=== PATIENT | female | born 1990 | race Caucasian/White ===

== ENCOUNTER 2022-05-25 08:31 | Outpatient (CLI) | payer BC, SELFPAY ==
--- NOTE | 2022-05-25 08:45 | CRLHL7_ITS ---
For Patients: As a result of the Century Cures Act, medical imaging exams and procedure reports are released immediately into your electronic medical record. You may view this report before your referring provider. If you have questions, please contact your health care provider. INDICATION: First trimester scan, establish dates. COMPARISON: None. TECHNIQUE: Real-time ornelas-scale imaging of the pelvis was performed. FINDINGS: Sonographic imaging demonstrates a single living intrauterine gestation. The embryo demonstrates a regular cardiac rate measuring 179 beats per minute. The embryo`s crown-rump length measurement of 1.8 cm corresponds to a gestational age of 8 weeks 2 days with a sonographic due date of 01/02/2023. There is a normal-appearing yolk sac. There are no gross abnormalities noted within the embryo at this early state of development. The gestational sac has a normal appearance. There is no evidence of a perigestational hemorrhage. The amount of fluid within the sac appears appropriate for gestational age. The cervix is closed. An intramural fibroid is present within the right uterine fundus measuring 1.7 x 1.4 x 1.7 cm. A smaller fibroid is present within the right lower uterine segment measuring 1.7 x 1.1 x 1.6 cm. The ovaries are of normal size. There are no suspicious fluid collections noted in the cul-de-sac. IMPRESSION: Single living intrauterine with sonographic gestational age 8 weeks 2 days and sonographic due date 01/02/2023. Two intramural fibroids measuring up to 1.7 cm. Dictated by Roberth Joya MD @ 05/25/2022 11:12:31 AM (Electronically Signed)
== END 2022-05-25 08:32 | disposition home or self-care (01) ==
LOC: US 08:32
PROVIDERS: Visit Provider Advanced Practice Midwife
DX: Z34.91 Encounter for supervision of normal pregnancy, unspecified, first trimester (principal); Z3A.09 9 weeks gestation of pregnancy
CPT/HCPCS: 76817; 86703; 86803; 86850; 86900; 86901; 87086; 87340

== ENCOUNTER 2022-05-25 10:00 | Outpatient (CLI) | payer BC, SELFPAY ==
[2022-05-25 13:44] LABS: Hepatitis B Surface Antigen* Negative (Negative)
[2022-05-25 13:50] LABS: HIV 1/2/P24 Combo Screen* Negative (Negative)
[2022-05-25 14:01] LABS: Hepatitis C Virus Antibody* Negative (Negative)
[2022-05-26 15:34] LABS: Rapid Plasma Reagin (RPR) Non Reactive (Non Reactive)
[2022-05-27 00:49] LABS: Varicella-Zoster Virus Ab, IgG 195.4 IV
== END 2022-05-25 10:01 | disposition home or self-care (01) ==
PROVIDERS: Visit Provider Advanced Practice Midwife
DX: Z34.90 Encounter for supervision of normal pregnancy, unspecified, unspecified trimester (principal)
CPT/HCPCS: 86592; 86703; 86762; 86787; 86803; 86850; 86900; 86901; 87086; 87340; 87491; 87591

== ENCOUNTER 2022-06-24 14:22 | Outpatient (CLI) | payer BC, SELFPAY ==
[2022-06-24 17:58] LABS: Chlamydia DNA Amplified* NOT DETECTED (No Detected); GC DNA Amplified* NOT DETECTED (No Detected)
== END 2022-06-24 14:23 | disposition home or self-care (01) ==
LOC: NFLDREF 06-25 11:36
PROVIDERS: Visit Provider Advanced Practice Midwife
DX: Z34.91 Encounter for supervision of normal pregnancy, unspecified, first trimester (principal); Z3A.12 12 weeks gestation of pregnancy
CPT/HCPCS: 87491; 87591

== ENCOUNTER 2022-08-18 08:09 | Outpatient (CLI) | payer BC, SELFPAY ==
--- NOTE | 2022-08-18 08:15 | CRLHL7_ITS ---
For Patients: As a result of the Century Cures Act, medical imaging exams and procedure reports are released immediately into your electronic medical record. You may view this report before your referring provider. If you have questions, please contact your health care provider. INDICATION: Evaluate anatomy. COMPARISON: 05/25/2022 TECHNIQUE: Real time ornelas scale imaging of the fetus was performed as well as color Doppler analysis of the umbilical vessels. FINDINGS: Sonographic imaging demonstrates a single living intrauterine gestation. Fetus demonstrates a regular cardiac rate of 155 beats per minute. Fetus has a breech position. The placenta lies posteriorly without evidence of placenta previa. The edge of the placenta is located 2.4 cm from the internal cervical os. Amniotic fluid volume appears normal. Single deepest vertical pocket: 3.3 cm. The cervix is closed and measures 3.5 cm in length. The composite ultrasound gestational age is calculated at 19 weeks 0 days with an estimated sonographic due date of 01/12/2023. The estimated weight is 294 grams which lies at the 14th %. The following biometric measurements were obtained: Biparietal diameter: 3.9 cm/17 weeks 6 days less than 3rd% Head circumference: 16.0 cm/18 weeks 6 days 3rd% Abdominal circumference: 13.6 cm/19 weeks 1 day 14th% Femur length: 3.3 cm/20 weeks 1 day 43rd% The HC/AC ratio measures: 1.17 range (1.09-1.26) On anatomic survey, there is a normal appearance of the cerebral ventricles, cavum septi pellucidi, cisterna magna and cerebellum. The nose, lips, and facial profile are not well visualized due to position. The cervical, thoracic and lumbar spine are well visualized and appear normal. There is a normal four-chamber heart view and the left and right ventricular outflow tracts are incompletely visualized due to position. The diaphragm and stomach appear normal. The kidneys and bladder also appear normal. There is a normal three-vessel cord and cord insertion site. The four extremities appear normal. IMPRESSION: Sonographic gestational age 19 weeks 0 days and sonographic due date 01/12/2023. Sonographic age 8 days behind the clinical age. Estimated weight 14th percentile. Abdominal circumference 14th percentile. Head circumference less than 3rd percentile. Due to position, there is incomplete visualization of the profile, nose, lips and heart. Remainder of the survey normal. Short-term follow-up recommended. Incidental placental haney noted measuring 2.6 x 1.4 x 2.4 cm. Anterior fibroid measuring 1.8 cm. Dictated by Roberth Joya MD @ 08/18/2022 10:31:33 AM (Electronically Signed)
== END 2022-08-18 08:10 | disposition home or self-care (01) ==
LOC: US 08:10
PROVIDERS: Visit Provider Advanced Practice Midwife
DX: Z34.92 Encounter for supervision of normal pregnancy, unspecified, second trimester (principal); O34.12 Maternal care for benign tumor of corpus uteri, second trimester; Z3A.19 19 weeks gestation of pregnancy
CPT/HCPCS: 76805

== ENCOUNTER 2022-10-14 13:45 | Outpatient (CLI) | payer BC, SELFPAY | END 2022-10-14 13:46 | disposition home or self-care (01) | PROVIDERS: Visit Provider Advanced Practice Midwife | DX: O16.3 Unspecified maternal hypertension, third trimester (principal); Z34.93 Encounter for supervision of normal pregnancy, unspecified, third trimester; Z3A.28 28 weeks gestation of pregnancy | CPT/HCPCS: 82565; 82570; 84156; 84450; 84460; 84520; 86592 ==

== ENCOUNTER 2022-10-23 08:04 | Outpatient (CLI) | payer BC, SELFPAY | END 2022-10-23 08:05 | disposition home or self-care (01) | LOC: NFLDREF 10-24 19:57 | PROVIDERS: Visit Provider Advanced Practice Midwife | DX: O24.419 Gestational diabetes mellitus in pregnancy, unspecified control (principal) | CPT/HCPCS: 82951; 82952 ==

== ENCOUNTER 2022-12-10 11:21 | Outpatient (CLI) | payer BC, SELFPAY ==
[2022-12-10] VITALS (14 sets, daily range): BP systolic 123–136; BP diastolic 68–93; PULSE 82–106; RESP 16; TEMP 36.9
[2022-12-10 12:14] LABS: Total Protein Urine 10 mg/dL
[2022-12-10 12:15] LABS: Creatinine Urine 93.2 mg/dL
[2022-12-10 12:45] LABS: Hematocrit 41.6 % (33.0-51.0); Mean Corpuscular HGB Conc 34 gm/dL (32-36); Mean Corpuscular Hemoglobin 30 pg (26-34); Mean Corpuscular Volume 88 fL (80-100); Platelet Count* 305 K/uL (140-440); Red Blood Count 4.72 m/uL (4.00-5.20); White Blood Count* 10.03 K/uL (4.50-11.00)
[2022-12-10 12:47] LABS: Slide Review Reflex No
[2022-12-10 12:59] LABS: Appearance Urine Clear (Clear); Bilirubin Urine Negative (Negative); Blood Urine Negative (Negative); Color Urine Yellow (Yellow); Glucose Urine Negative (Negative); Ketones Urine Negative (Negative); Leukocyte Esterase Urine Negative (Negative); Nitrite Urine Negative (Negative); Protein Urine Negative (Negative); Specific Gravity Urine 1.015 (1.000-1.030); Urobilinogen Urine 0.2 (0.2-1.0)
[2022-12-10 13:09] LABS: Aspartate Amino Transferase* 19 U/L (12-35); Creatinine* 0.6 mg/dL (0.5-1.5); Estimated Glomerular Filt Rate 121 ml/min
[2022-12-10 13:10] LABS: Alanine Aminotransferase* 13 U/L (4-35); Blood Urea Nitrogen* 6 mg/dL (5-24)
[2022-12-10 13:32] LABS: Clue Cells No Clue Cells Seen (None Seen); Trichomonas No Trichomonas Seen (None Seen); Yeast No Yeast Seen (None Seen)
[2022-12-10] MEDS: BETAMETHASONE SOD PHOS/ACETATE 6 MG/ML ML 12 MG IM (13:42)
--- NOTE | 2022-12-10 15:19 | PC.OBNST ---
NST Note NST Note Start: 12/10/22 11:30 Freq: ONCE Status: Active Protocol: Document 12/10/22 15:15 MMB (Rec: 12/10/22 15:17 MMB [id number]) NST Note 1 Para (# of births) 0 EDC 01/04/23 Gestational Age In Weeks & Days 36 Weeks & 3 Days High Risk Factors High Blood Pressure - Gestational,Diabetes - Gestational Diet Controlled Patient Presented with Complaint(s) of Contractions/cramping,Other Other Complaints Continued observation from clinic for high blood pressures. Reactive Yes Appropriate for Gestational Age Yes RN Tanvi Ramos RN Date 12/10/22 Reactive Yes Appropriate for Gestational Age Yes RN Homero Hidalgo RN Date 12/10/22 OB NST charge Yes Complete NST Note via Write Note Yes The provider's electronic signature indicates the NST is reactive/appropriate for gestational age. *Note to provider: If an addendum is required, open the patient's chart and click on the note under the Nurse/Allied Health tab.
[2022-12-11 11:14] LABS: Strep B DNA Probe POSITIVE (Negative)
[2022-12-11 11:15] LABS: Strep B Pen/Amox Allergy No
== END 2022-12-10 14:50 | disposition home or self-care (01) ==
LOC: OB OUT 11:24 → OB 11:27
PROVIDERS: Visit Provider Advanced Practice Midwife
DX: Z34.93 Encounter for supervision of normal pregnancy, unspecified, third trimester (principal); Z3A.36 36 weeks gestation of pregnancy
CPT/HCPCS: 36415; 59025; 81003; 82565; 82570; 84156; 84450; 84460; 84520; 85027; 87081; 87210; 87653; 99213; J0702

== ENCOUNTER 2022-12-13 23:46 | Inpatient (IN) | payer BC, SELFPAY ==
[2022-12-13 23:00] VITALS: TEMP 36.8
[2022-12-13 23:04] VITALS: BP 156/98; PULSE 97; PULSE 99; O2SAT 98
[2022-12-13 23:15] VITALS: BMI 33.3
[2022-12-13 23:18] VITALS: BP 149/99; PULSE 110
[2022-12-13 23:55] LABS: Hematocrit 39.6 % (33.0-51.0); Hemoglobin* 13.4 gm/dL (12.0-16.0); Mean Corpuscular HGB Conc 34 gm/dL (32-36); Mean Corpuscular Hemoglobin 30 pg (26-34); Mean Corpuscular Volume 89 fL (80-100); Platelet Count* 304 K/uL (140-440); Red Blood Count 4.47 m/uL (4.00-5.20); White Blood Count* 13.28 K/uL (4.50-11.00)
[2022-12-13 23:59] LABS: Slide Review Reflex No
[2022-12-14] VITALS (32 sets, daily range): BP systolic 121–169; BP diastolic 72–98; PULSE 78–108; RESP 16–20; TEMP 36.4–37; O2SAT 95
[2022-12-14 00:05] LABS: Alanine Aminotransferase* 17 U/L (4-35); Aspartate Amino Transferase* 37 U/L (12-35); Blood Urea Nitrogen* 11 mg/dL (5-24); Creatinine* 0.6 mg/dL (0.5-1.5); Est. Creatinine Clearance* 110.32; Estimated Glomerular Filt Rate 121 ml/min
[2022-12-14] MEDS: LACTATED RINGERS 1000 ML 1,000 ML 125 ML IV (00:22)
[2022-12-14] MEDS: AMPICILLIN 2 GM in 0.9 % SODIUM CHLORIDE Mini-bag 100 ML IVPB (00:23)
[2022-12-14] MEDS: OXYTOCIN 30 unit/500 ML in NS 30 UNIT/500 ML BAG IVPB (00:24)
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
[2022-12-14] MEDS: AMPICILLIN 1 GM in 0.9 % SODIUM CHLORIDE Mini-bag 100 ML IVPB (04:07)
--- NOTE | 2022-12-14 05:33 | W.PM.OBVAGDE ---
OB Procedure Vag Delivery Mother Details Mother Details: The patient is a 32 year-old, 1, now Para 1, admitted on 12/13/22 at 36.6 Days gestation. Delivery occurred 12/14/22 at 37.0 weeks gestation : 1 Para: 1 Weeks Gestation: 37.0 Admission Date: 12/13/22 Additional Details Amniotic Membrane Status: SROM Amniotic Membrane Rupture Date: 12/13/22 Amniotic Membrane Rupture Time: 22:00 Amniotic Membrane Fluid Description: Clear Analgesia/Anesthesia Type: Local (for repair only) Waterbirth: No Pitcoin: Yes Intrapartal Events: Labor Augmentation and Precipitous Labor <3 Hrs Induction Method: per pitocin protocol Labor Onset: 03:00 Complete: 04:30 Pushin:57 Heart: heart tones during second stage were difficult to monitor r/t pt position/pushing. Variable decels noted at times w/ pushing and after. Good return to baseline after the decel. Turned/tilted to her sides at times to help with recovery to baseline. Delivery Details Delivery Date: 12/14/22 Delivery Time: 05:02 Route of delivery: Gender: Female Viability: Alive; Heart Rate Present Position at Delivery: OA Delivery Details: Rosina was admitted to L & D for SROM. The decision was made to proceed with pitocin augmentation r/t elevated BPs. She was scheduled as an IOL for gestational hypertension later this AM. Shortly after pitocin was started, she was noted to be breathing through ctx. She labored in various positions, and then got in the tub. She was noted to be spontaneously pushing w/ ctx. Assisted back to bed where she continued to push with good descent. At 0502 a viable?female delivered in vertex OA presentation over intact perineum via spontaneous vaginal?delivery. ? was placed on maternal abdomen. ?Cord was clamped and cut after a 1-2 minute delay.? She was taken over to a prewarmed open warmer w/ peds at bedside for further assessment. ? weight 5 lb 15 oz. ? 7 at 1 minute and 8 at 5 minutes. ?Shoulder dystocia: no. ?Nuchal cord: no. True knot noted in cord. Shortly after baby was taken to the warmer, a large amount of bleeding was noted. Attempted to deliver the placenta, which delivered quickly. Placenta delivered spontaneously and complete at 0505 with a 3 vessel cord. Mother and infant were stable after?delivery. Lacerations:? 1st degree, repaired with 3-0 vicryl.? bilateral periurethrals lacerations, not bleeding, not repaired Blood loss: 125 mL. Blood loss measurement type: QBL? Sponge and needles counts are correct. 1 Minute Interval Total Score: 7 10 Minute Interval Total Score: 8 Additional Details Shoulder Dystocia: No Placenta Delivery Time: 05:05 Placental Delivery Description: Spontaneous Delivery repair: Vicryl Procedure Done: Global Blood Loss: 125 Laceration: Perineal - 1st Degree Blood Loss Measurement Type: QBL Bakri Used: No Sponge/Need Count Correct: Yes Cord Vessel Description: 3 Vessels and True Knot Event Summary Status: Mother and were stable after delivery. Disposition: floor
[2022-12-14 06:49] LABS: Hematocrit 39.2 % (33.0-51.0); Hemoglobin* 13.3 gm/dL (12.0-16.0); Mean Corpuscular HGB Conc 34 gm/dL (32-36); Mean Corpuscular Hemoglobin 30 pg (26-34); Mean Corpuscular Volume 89 fL (80-100); Platelet Count* 236 K/uL (140-440); White Blood Count* 24.47 K/uL (4.50-11.00)
[2022-12-14 06:52] LABS: Slide Review Reflex No
[2022-12-14 07:03] LABS: Creatinine* 0.7 mg/dL (0.5-1.5); Est. Creatinine Clearance* 94.56; Estimated Glomerular Filt Rate 117 ml/min
[2022-12-14 07:04] LABS: Alanine Aminotransferase* 18 U/L (4-35); Aspartate Amino Transferase* 39 U/L (12-35)
[2022-12-14] MEDS: MAGNESIUM IV 4 GM/100 ML PIGGYBACK IVPB (07:29)
[2022-12-14] MEDS: LACTATED RINGERS 1000 ML 1,000 ML 75 ML IV ×2 (07:29→20:52)
--- NOTE | 2022-12-14 09:02 | PM.OBPNVD1 ---
OB - PN:Subj Subjective Time Seen by Provider: 08:30 Date Seen: 12/14/22 Narrative: Overnight patient had uncomplicated vaginal delivery. She reports that she was thankful it went quick. Her pain is well controlled on oral pain medications. She is not yet tolerating a regular diet. She has passed flatus. She is ambulating without difficulty. Lochia is moderate. She is urinating without davies. Patient denies chest pain, SOB, n/v, headache, RUQ pain, vision changes, dizziness. Patient ruled in for preeclampsia with severe features based on severe ranging blood pressures. These blood pressures spontaneously resolved upon recheck but she had multiples. Decision was made to start patient on magnesium sulfate for seizure ppx. Has only been 3 hours since her delivery and she's moved to room. I discussed monitoring her BP a little long to decide if she needs ora antihypertensive. OB - PN: Obj Exam Physical Exam: Vital signs: Temp Pulse Resp BP Pulse Ox 98.6 F 89 16 146/91 H 98 12/14/22 07:15 12/14/22 08:30 12/14/22 08:30 12/14/22 08:30 12/13/22 23:04 Narrative: Physical exam: General: No acute distress. Appears appropriately fatigued Psych: Alert and oriented x3, full affect HEENT: Normocephalic, atraumatic Heart: Regular rate and rhythm, no murmur rub or gallop Lungs: Clear to auscultation bilaterally Abdomen: Normoactive bowel sounds, soft, no tenderness, rebound, or guarding. Uterus 3 cm below umbilicus and firm. Skin: No lesions or rashes Lower extremities: + bilateral edema Pelvic exam: Moderate lochia OB - PN: Obj Data Labs Labs: Laboratory Results - last 24 hr 12/13/22 12/14/22 23:35 06:43 WBC 13.28 H 24.47 H RBC 4.47 4.40 Hgb 13.4 13.3 Hct 39.6 39.2 MCV 89 89 MCH 30 30 MCHC 34 34 Plt Count 304 236 BUN 11 Creatinine 0.6 0.7 Estimated Creat Clear 110.32 94.56 Estimated GFR 121 117 AST 37 H 39 H ALT 17 18 Blood Type O Positive Antibody Screen NEGATIVE OB - PN: A/P Vaginal Delivery Assessment and Plan (1) Gestational hypertension: Status: Acute (2) Pre-eclampsia, severe: Status: Acute Assessment and Plan: - Patient with GHTN diagnosed with preeclampsia with severe features based on 3 severe range in blood pressures (163/96, 162/91, 169/91). All severe range of blood pressures resolved on recheck and she did not require IV antihypertensive. - Patient is asymptomatic - Currently BP: 130-140s/80-90s - PreE labs: Wnl except for AST of 39 - Plan for 24 hours of magnesium sulfate for seizure prophylaxis. Strict I/O
[2022-12-14] MEDS: NIFEdipine 30 MG TAB.ER.24 PO (18:13)
[2022-12-15 02:00] VITALS: BP 135/89; PULSE 98; RESP 16; TEMP 36.4; O2SAT 96
[2022-12-15 05:28] LABS: Basophils Percent Auto 0.3 % (0.0-3.0); Eosinophils Percent Auto 0.9 % (0.0-7.0); Hemoglobin* 12.5 gm/dL (12.0-16.0); Immature Granulocytes Pct Auto 0.7 %; Lymphocytes Percent Auto 18.4 % (20-44); Mean Corpuscular HGB Conc 34 gm/dL (32-36); Mean Corpuscular Hemoglobin 30 pg (26-34); Mean Corpuscular Volume 90 fL (80-100); Monocytes Percent Auto 6.3 % (0.0-11.0); Neutrophils Percent Auto 73.4 % (42.0-72.0); Platelet Count* 269 K/uL (140-440); RDW Coefficient of Variation % 12.6 % (11.5-15.5); Red Blood Count 4.13 m/uL (4.00-5.20); White Blood Count* 15.03 K/uL (4.50-11.00)
[2022-12-15 05:36] LABS: Slide Review Reflex No
[2022-12-15 05:43] LABS: Alanine Aminotransferase* 20 U/L (4-35); Aspartate Amino Transferase* 36 U/L (12-35); Blood Urea Nitrogen* 7 mg/dL (5-24); Creatinine* 0.7 mg/dL (0.5-1.5); Est. Creatinine Clearance* 94.56; Estimated Glomerular Filt Rate 117 ml/min
[2022-12-15] MEDS: ACETAMINOPHEN 500 MG TABLET 1000 MG PO ×2 (07:24→21:01)
[2022-12-15 07:30] VITALS: BP 130/85; PULSE 96; RESP 16; TEMP 36.3; O2SAT 96
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
[2022-12-15] MEDS: NIFEdipine 30 MG TAB.ER.24 PO ×2 (09:46→20:54)
[2022-12-15] MEDS: DOCUSATE SODIUM 100 MG CAPSULE PO (09:47)
[2022-12-15 12:00] VITALS: BP 124/90; PULSE 92; RESP 16; TEMP 36.4; O2SAT 95
[2022-12-15 15:00] VITALS: BP 128/84; PULSE 100; RESP 16; TEMP 36.6; O2SAT 95
[2022-12-15 20:53] VITALS: BP 120/79; PULSE 94
[2022-12-15 20:54] VITALS: PULSE 94; RESP 16; TEMP 36.9; O2SAT 97
[2022-12-16 00:43] VITALS: BP 126/84; PULSE 93; RESP 16; TEMP 36.9; O2SAT 94
[2022-12-16 03:59] VITALS: BP 124/84; PULSE 74; RESP 16; TEMP 37.2; O2SAT 95
--- NOTE | 2022-12-16 08:12 | P.DS_ITS ---
DS: Providers Provider Time Seen by Provider: 08:13 Date Seen: 12/16/22 Date of admission: 12/13/22 23:46 Primary care physician: Not a Local Provider Admitting Clinician: Kami Teran CNM Attending Physician on discharge: Addis Lawrence MD Date of Discharge: 12/16/22 DS: Diagnosis Discharge Diagnosis (1) Pre-eclampsia, severe: Status: Acute (2) Status post vaginal delivery: Status: Acute Exam Const: Vital Signs, click to edit/add: Vital Signs - 24 hr 12/15/22 12:00 12/15/22 15:00 12/15/22 20:53 Temperature 97.6 F 97.8 F Pulse Rate [Blood Pressure Cuff] 92 100 94 Respiratory Rate 16 16 Blood Pressure [Ri ght Arm] 124/90 H 128/84 120/79 Pulse Oximetry 95 95 Oxygen Delivery Me thod Room Air Room Air 12/15/22 20:54 12/16/22 00:43 12/16/22 03:59 Temperature 98.4 F 98.5 F 98.9 F Pulse Rate [Blood Pressure Cuff] 94 93 74 Respiratory Rate 16 16 16 Blood Pressure [Ri ght Arm] 126/84 124/84 Pulse Oximetry 97 94 95 Oxygen Delivery Me thod Room Air Room Air Room Air Documenting provider has reviewed patient's vital signs: yes Common normals: no apparent distress and oriented x3 General appearance: cooperative and comfortable HENMT: Common normals: normocephalic Head and scalp: normocephalic Resp: Common normals: normal respiratory effort Cardio: Common normals: regular rate and regular rhythm Rate: regular rate Rhythm: regular rhythm GI: Common normals: soft to palpation and non-tender Inspection: normal to inspection Palpation: soft : Uterus: U/2 Lochia: scant Extremity: Common normals: normal to inspection and no pedal edema Neuro: Common normals: oriented x3 Psych: Common normals: affect normal OB - DS: Summary Hospital Course Hospital Course: The patient is a 32 year old G 1 P 1001 at 37 0/7 weeks gestation that was admitted to the Center on 12/13/22 for spontaneous rupture of membranes. was complicated by gestational diabetes, diet-controlled, and gestational hypertension. She had an uncomplicated vaginal delivery. She delivered a viable female . She is breast/bottle feeding. , she developed severe range blood pressures and was treated with magnesium sulfate prophylaxis for 24 hours. The patient has done well and BP has been stable on nifedipine since magnesium infusion was discontinued. She feels well, and has had a bowel moevment. Peripartum Data delivery method: Vaginal Laceration description: Periurethral - 1st Degree complications: other (severe range BP/ pre-eclampsia) [place] Gender: Female Infant Discharge Plan: Home Status at Discharge Overall status at discharge: patient is back to baseline Time Spent with Patient Time attestation: Total time spent providing and/or coordinating discharge services: Discharge Plan Discharge Disposition: Home, Self-Care Date of Admission: 12/13/22 23:46 Primary Care Provider: Provider,Not a Local Condition: Stable Anticipated Discharge Date/Time: 12/16/22 08:22 Discharge Medications: New nifedipine 30 mg Tablet Extended Release 24hr 30 mg PO BID Qty: 60 1RF docusate sodium 100 mg Capsule 100 mg PO DAILY Qty: 30 0RF ibuprofen 600 mg Tablet 600 mg PO Q6H PRNQty: 30 0RF Continued aripiprazole 2 mg tablet 2.5 mg PO QDAY prenat.vits,kleber,yvc-medf-ehfaf Tablet 1 tab PO QDAY aspirin 81 mg tablet,chewable 81 mg PO QDAY venlafaxine 150 mg capsule,extended release 24hr 300 mg PO QDAY buspirone 30 mg tablet 30 mg PO BID (DME) [facility] See Rx Instructions .MEDSUPPLY Qty: 100 3RF Rx Instructions: Test blood sugar 4 times daily. (DME) lancets Misc See Rx Instructions .MEDSUPPLY Qty: 100 3RF Rx Instructions: Test blood sugar 4 times daily. (DME) Blood Glucose Meter Misc See Rx Instructions .MEDSUPPLY Qty: 1 0RF Rx Instructions: As directed Discharge Orders: Discharge Order (Routine); Ordered 12/16/22 Ordered By: Addis Lawrence Patient Education: OB High Blood Pressure DC, OB Vaginal/Breast Feeding Discharge Diet: Regular Follow Up Appointments: Provider,Not a Local [Primary Care Provider] - Forms: [facility] Info Instructions
[2022-12-16 08:30] VITALS: BP 133/95; PULSE 77; RESP 16; TEMP 36.8; O2SAT 95
[2022-12-16] MEDS: NIFEdipine 30 MG TAB.ER.24 PO (08:39)
[2022-12-16] MEDS: DOCUSATE SODIUM 100 MG CAPSULE PO (08:40)
[2022-12-16 12:11] VITALS: BP 133/95; PULSE 77; RESP 16; TEMP 36.8
== END 2022-12-16 12:10 | disposition home or self-care (01) | DRG 560 ==
LOC: OB OUT 23:47 → OB 12-14 10:59
PROVIDERS: Obstetrics & Gynecology; Admitting Provider Advanced Practice Midwife; Visit Provider Advanced Practice Midwife
DX: O13.4 Gestational [pregnancy-induced] hypertension without significant proteinuria, complicating childbirth (principal); O14.15 Severe pre-eclampsia, complicating the puerperium; O24.420 Gestational diabetes mellitus in childbirth, diet controlled; O62.3 Precipitate labor; O70.0 First degree perineal laceration during delivery; O99.824 Streptococcus B carrier state complicating childbirth; O34.13 Maternal care for benign tumor of corpus uteri, third trimester; D25.1 Intramural leiomyoma of uterus; O99.344 Other mental disorders complicating childbirth; F32.A Depression, unspecified; F41.9 Anxiety disorder, unspecified; G47.00 Insomnia, unspecified; Z3A.37 37 weeks gestation of pregnancy; Z37.0 Single live birth
CPT/HCPCS: 36415; 82565; 82570; 82962; 84156; 84450; 84460; 84520; 85025; 85027; 86850; 86900; 86901; 88307; 99213; A9270; J0290; J3475; J7120

== ENCOUNTER 2022-12-18 14:11 | Outpatient (CLI) | payer BC, SELFPAY ==
--- NOTE | 2022-12-18 17:00 | P.LACCB_ITS ---
Consult Note - Mom Date of Visit Date of visit: 12/18/22 talent development consultant: Mima Guadarrama Visit Code: Visit Patient's Information Phone number: [phone] : 1 Para: 1 Allergies No Known Drug Allergies Allergy (Verified 12/14/22 07:25) Mother's Medical History: Medical History (Updated 12/18/22 @ 00:00 by Background Daemon) History of traumatic brain injury (2008) ?Z87.820 - Personal history of traumatic brain injury (ICD-10) Depression ?F32.A - Depression, unspecified (ICD-10) Anxiety ?F41.9 - Anxiety disorder, unspecified (ICD-10) A1GDM, pre-eclampsia Delivery Information Delivery type: Vaginal Weeks Gestation: 37.0 Gestational Age: AGA (IUGR) Weight: 2.693 kg Discharge Weight: 2.523 kg Baby's Information Baby's Age at Visit: 4 days Baby's Provider or Clinic: Dr. Rivers Jaundice: Yes (level to be checked at NB visit later today) Reason for Consult Reason for Consult: difficulty latching Past Experience Past Experience: No Current Frequency of Day Feedings: mom attempts to breastfeed every 2 - 3 hours around the clock Both Breasts: Yes Suck: is suckling a little longer than she did in the hospital Latch: fairly wide Length of Time: a few minutes Pumping Pumping: Yes (mom tries to pump after every nursing attempt) Quantity Pumped: milk just beginning to come in Supplementing EMB Supplement: No Formula Supplement: Yes (POC give 25 ml every 2 - 3 hours, bottle feeding) Baby Elimination Number of Wet Diapers a Day: 5 - 7 in 24 hours Number of BM a Day: 3 - 4 in 24 hours; transitional, a little seedy Breast/Nipple Condition Breast Information: WNL Maternal Nipple Condition - Left: Short Maternal Nipple Condition - Right: Short Sore Nipples: No Onsite Pre-Feed weight: 2.484 kg Assessments/Interventions Assessments/Interventions: Met with mom and this now 4 day old ex- term AGA/IUGR baby for consult.? Mom reports she attempts to nurse every 2 - 3 hours. In the hospital she was using a nipple shield with some success but states for the past day or so it's been easier to latch her without it.? Baby still only suckles for a few seconds before coming off or stopping however.? Mom then pumps with her Spectra pump, hasn't really gotten much until today when she pumped a few ml's of what looked like milk and not colostrum.? Baby is supplemented with anything mom gets plus 25 ml formula every 2 - 3 hours. Breasts WNL- symmetrical with rounded lower quadrants, intramammary distance is < 1.5 inches.? Nipples are short but everted and don't flatten or retract on compression; no damage noted.? Mom with hx of A1GDM and pre-eclampsia.? This is also her first baby, all of which could be contributing to a little delayed lactogenesis II.? She reports positive breast changes in . Baby has not begun to gain weight from D/C and at 4 DOL is 8% below BW.? POC deny any caput/cephalohematoma and report equal ROM when turning her head/moving her extremities.? Baby's upper lip is fairly easy to flange and her gums don't brayan when doing so.? Her palate is WNL.? She has a strong suck on a finger but her tongue doesn't consistently extend past the gum line.? The tongue also has some canoeing when lateralizing.? Mom latched baby to the right side without a shield and she had a wide latch and suckled about 10 times before stopping.? This pattern continued for several minutes until baby started to get more frustrated.? Mom switched to the left side but there was really no improvement.? Baby also did not suckle when a nipple shield was placed.? After about a 15 minute attempt POC were shown how to pace feed and baby took 30 ml formula. POC were shown a few exercises they could try (tug of war and gape getters) to see if this helps baby more consistently stick her tongue over the gumline. Plan: 1. Continue putting baby to breast every 2 - 3 hours, offer both sides, use the nipple shield if it helps her.? Practice for 10 - 15 minutes and if it's not successful, ok to supplement. 2. Continue pumping- as mom is feeling a little overwhelmed by pumping 8 - 10 times in 24 hours ok to go to 6 - 8.? A new flange size was recommended and a handout given. 3. Continue supplementing with every feeding.? Discussed that babies her age usually take 30 - 45 ml. Watch for feeding and satiation cues. 4. Baby has PCP appointment later today.? Will f/u with mom by phone on 12/25 to see how things are going and if she'd like another appointment in . Meds Home Medications and Allergies Home Medications Medication Instructions Recorded Confirmed Type aripiprazole 2 mg tablet 2.5 mg PO QDAY 05/25/22 12/13/22 History venlafaxine 150 mg 300 mg PO QDAY 05/25/22 12/13/22 History capsule,extended release 24 hr buspirone 30 mg tablet 30 mg PO BID 05/26/22 12/13/22 History aspirin 81 mg chewable tablet 81 mg PO QDAY 08/18/22 12/13/22 History prenat.vits,kleber,ees-qiew-viphd 1 tab PO QDAY 08/18/22 12/13/22 History Allergies Allergy/AdvReac Type Severity Reaction Status Date / Time No Known Drug Allergies Allergy Verified 12/14/22 07:25
== END 2022-12-18 14:12 | disposition home or self-care (01) ==
LOC: OB LAC 14:12
PROVIDERS: Visit Provider Advanced Practice Midwife
DX: Z39.1 Encounter for care and examination of lactating mother (principal)
CPT/HCPCS: 99211

== ENCOUNTER 2023-02-01 08:41 | Outpatient (CLI) | payer BC, SELFPAY | END 2023-02-01 08:42 | disposition home or self-care (01) | LOC: NFLDREF 02-03 15:03 | PROVIDERS: Visit Provider Advanced Practice Midwife | DX: E66.9 Obesity, unspecified (principal); Z39.2 Encounter for routine postpartum follow-up; Z39.1 Encounter for care and examination of lactating mother | CPT/HCPCS: 82947; 82950 ==

== ENCOUNTER 2023-09-14 08:02 | Outpatient (CLI) | payer BC, SELFPAY ==
--- NOTE | 2023-09-14 08:15 | US_ITS ---
Patient: SELAM SAMUELS Facility:?[facility] Patient ID:?[id number] Site Patient ID:?[id number] Site :?1990 Study:?US-OB Pelvis DATING AND VIABILITY-09/14/2023 8:40:20 AM Ordering Physician:MELO MORRISSEY Final Report: INDICATION: First trimester scan, establish dates. COMPARISON: None. TECHNIQUE: Real-time ornelas-scale imaging of the pelvis was performed. FINDINGS: Sonographic imaging demonstrates a single living intrauterine gestation. The embryo demonstrates a regular cardiac rate measuring 165 beats per minute. The embryo`s crown-rump length measurement of 1.7 cm corresponds to a gestational age of 8 weeks 0 days with a sonographic due date of 04/25/2024. There is a normal-appearing yolk sac. Lobular structure arises from the choriodecidual surface into the gestational sac. Left-sided subchorionic hemorrhage is present measuring 2.5 x 0.8 x 2.7 cm. The amount of fluid within the sac appears appropriate for gestational age. The cervix is closed. The myometrium appears normal. The ovaries are of normal size. Corpus luteal cyst left ovary. There are no suspicious fluid collections noted in the cul-de-sac. IMPRESSION: Gestational age calculated at 8 weeks 0 days with a sonographic due date of 04/25/2024. Chorionic bump appears to be present, possibly associated with a guarded prognosis for early although some have suggested that this risk is over estimated. Left-sided subchorionic hemorrhage measuring 2.5 x 0.8 x 2.7 cm. Dictated by Roberth Joya MD @ 09/14/2023 9:00:40 AM Signed by:?Roberth Joya MD @09/14/2023 9:00:40 AM (Electronic Signature)
== END 2023-09-14 08:03 | disposition home or self-care (01) ==
LOC: US 08:02
PROVIDERS: Visit Provider Advanced Practice Midwife
DX: Z34.91 Encounter for supervision of normal pregnancy, unspecified, first trimester (principal); O20.9 Hemorrhage in early pregnancy, unspecified; Z3A.08 8 weeks gestation of pregnancy
CPT/HCPCS: 76817; 86703; 86706; 86803; 86850; 87086; 87340

== ENCOUNTER 2023-09-14 09:49 | Outpatient (CLI) | payer BC, SELFPAY | END 2023-09-14 09:50 | disposition home or self-care (01) | PROVIDERS: Visit Provider Advanced Practice Midwife | DX: Z34.91 Encounter for supervision of normal pregnancy, unspecified, first trimester (principal) | CPT/HCPCS: 86592; 86703; 86704; 86706; 86762; 86787; 86803; 86850; 87086; 87340 ==

== ENCOUNTER 2023-10-12 10:06 | Outpatient (CLI) | payer BC, SELFPAY | END 2023-10-12 10:07 | disposition home or self-care (01) | PROVIDERS: Visit Provider Advanced Practice Midwife | DX: Z34.81 Encounter for supervision of other normal pregnancy, first trimester (principal) | CPT/HCPCS: 82565; 82570; 84156; 84450; 84460; 84520; 87086 ==

== ENCOUNTER 2023-10-14 09:30 | Outpatient (CLI) | payer BC, SELFPAY | END 2023-10-14 09:31 | disposition home or self-care (01) | LOC: NFLDREF 10-15 05:43 | PROVIDERS: Visit Provider Advanced Practice Midwife | DX: O14.90 Unspecified pre-eclampsia, unspecified trimester (principal) | CPT/HCPCS: 82570; 84156 ==

== ENCOUNTER 2023-12-06 13:42 | Outpatient (CLI) | payer BC, SELFPAY ==
--- NOTE | 2023-12-06 14:00 | CRLHL7_ITS ---
For Patients: As a result of the Century Cures Act, medical imaging exams and procedure reports are released immediately into your electronic medical record. You may view this report before your referring provider. If you have questions, please contact your health care provider. INDICATION: survey. TECHNIQUE: Conventional transabdominal two-dimensional grayscale ultrasound examination. COMPARISON: 09/14/2023 FINDINGS: There is a living fetus with gestational age of 20 weeks by LMP and 20 weeks 1 day by today`s measurements. EDC based on LMP is 04/24/2024. BPD: 4.4 cm, 19 weeks 3 days Head circumference: 17.0 cm, 19 weeks 4 days Abdominal circumference: 16.8 cm, 21 weeks 6 days Femur length: 3.1 cm, 19 weeks 5 days The weight is estimated at 370 grams, the 83rd percentile. The heart rate is measured at 144 beats per minute and the rhythm appears regular. The head and spine are grossly intact. No gross facial abnormality is evident. The upper lip is intact. Four cardiac chambers are demonstrated. The heart and stomach appear to be on the same side. The diaphragm is intact. Two kidneys and a bladder are demonstrated. The cord insertion is normal and three cord vessels are noted. Eccentric location of the placental cord insertion is demonstrated. The cord insertion is 3.5 cm from the placental margin. A small amniotic band may be present adjacent to the placental cord insertion. Four extremities are demonstrated. The amniotic fluid volume is within normal limits. The placenta is fundal with no evidence of previa. The cervical length is normal at 4.9 cm. IMPRESSION: 1. Living fetus with gestational age of 20 weeks by LMP and 20 weeks 1 day by today`s measurements. EDC based on LMP is 04/24/2024. 2. No anomaly evident. 3. Eccentric placental cord insertion 3.5 cm from the placental margin and question of small adjacent amniotic band. Dictated by Bryan Bocanegra MD @ 12/07/2023 8:35:26 PM (Electronically Signed)
== END 2023-12-06 13:43 | disposition home or self-care (01) ==
LOC: US 13:42
PROVIDERS: Visit Provider Advanced Practice Midwife
DX: Z34.92 Encounter for supervision of normal pregnancy, unspecified, second trimester (principal); Z3A.20 20 weeks gestation of pregnancy
CPT/HCPCS: 76805

== ENCOUNTER 2023-12-08 09:00 | Outpatient (RCR) | payer BC, SELFPAY | END 2024-04-06 23:59 | disposition home or self-care (01) | PROVIDERS: Visit Provider Advanced Practice Midwife | DX: O26.899 Other specified pregnancy related conditions, unspecified trimester (principal); R10.2 Pelvic and perineal pain; Z51.89 Encounter for other specified aftercare | CPT/HCPCS: 97012; 97110; 97112; 97161; 97535 ==

== ENCOUNTER 2024-01-16 13:20 | Outpatient (CLI) | payer MEDICAID, SELFPAY | END 2024-01-16 13:21 | disposition home or self-care (01) | LOC: NFLDREF 23:46 | PROVIDERS: Visit Provider Nurse Practitioner Family | DX: N30.90 Cystitis, unspecified without hematuria (principal); R39.9 Unspecified symptoms and signs involving the genitourinary system; Z33.1 Pregnant state, incidental | CPT/HCPCS: 87086 ==

== ENCOUNTER 2024-02-01 12:30 | Outpatient (CLI) | payer MEDICAID, SELFPAY | END 2024-02-01 12:31 | disposition home or self-care (01) | LOC: NFLDREF 02-04 10:21 | PROVIDERS: Visit Provider Midwife | DX: Z34.93 Encounter for supervision of normal pregnancy, unspecified, third trimester (principal) | CPT/HCPCS: 86592 ==

== ENCOUNTER 2024-02-29 13:23 | Outpatient (CLI) | payer MEDICAID, SELFPAY ==
[2024-02-29] VITALS (76 sets, daily range): BP systolic 110–142; BP diastolic 64–94; PULSE 79–123; O2SAT 89–99
[2024-02-29 14:16] LABS: Hematocrit 35.7 % (33.0-51.0); Hemoglobin* 11.9 gm/dL (12.0-16.0); Mean Corpuscular HGB Conc 33 gm/dL (32-36); Mean Corpuscular Hemoglobin 30 pg (26-34); Mean Corpuscular Volume 90 fL (80-100); Platelet Count* 220 K/uL (140-440); Red Blood Count 3.95 m/uL (4.00-5.20); White Blood Count* 8.62 K/uL (4.50-11.00)
[2024-02-29 14:19] LABS: Slide Review Reflex No
[2024-02-29 14:34] LABS: Alanine Aminotransferase* 8 U/L (4-35); Aspartate Amino Transferase* 18 U/L (12-35); Blood Urea Nitrogen* 5 mg/dL (5-24); Creatinine* 0.6 mg/dL (0.5-1.5); Estimated Glomerular Filt Rate 121 ml/min
[2024-02-29 14:49] LABS: Total Protein Urine 13 mg/dL
[2024-02-29 14:51] LABS: Creatinine Urine 150.7 mg/dL; Protein Creatinine Ratio Urine 0.09 (0-0.19)
[2024-02-29 14:57] LABS: SARS PCR* Negative SARS-CoV-2 (Negative)
--- NOTE | 2024-02-29 16:30 | PM.OBLDTN ---
OB - Triage/Final Diagnosis Visit Information Date of evaluation: 02/29/24 Narrative: Rosina is a 33 year old 2 para 1 at 32.1 weeks gestation by LMP, who presents from the clinic after a couple of elevated blood pressures with a history of Preeclampsia in her previous . She had one elevated blood pressure of 142/92 after presenting but the remaining have been 110-120/60-70. Preeclampsia labs, pulse and temperate were all WNL. Her O2 sats were 92-95 at rest and did increase o 97-98 with activity or talking. She was complaining of feeling slightly SOB over the last 24 hours but has not increased and denies associated symptoms. FHT tracing has been reactive. Consulted with Dr. Carson who recommended 3-4 hours of monitoring. Covid swab was negative. Consulted with the hospitalist Dr. Sosa to see if she recommended further testing for upper respiratory concerns but she did not feel that any were needed at this time. I discussed labs, finds and recommendations with Rosina. She is agreeable to further monitoring. Reviewed warning signs and when to be seen after discharge and questions answered. At that time she did state that the SOB has improved and her sats are now 97-100. Some contractions are tracing on the TOCO but she only feels an occasional cramping and her abdomen palpates mild. Evaluation Laboratory results: Laboratory Tests 02/29/24 02/29/24 Range/Units 14:20 14:06 WBC 8.62 (4.50-11.00) K/uL RBC 3.95 L (4.00-5.20) m/uL Hgb 11.9 L (12.0-16.0) gm/dL Hct 35.7 (33.0-51.0) % MCV 90 (80-100) fL MCH 30 (26-34) pg MCHC 33 (32-36) gm/dL Plt Count 220 (140-440) K/uL BUN 5 (5-24) mg/dL Creatinine 0.6 (0.5-1.5) mg/dL Estimated GFR 121 ml/min AST 18 (12-35) U/L ALT 8 (4-35) U/L Urine Creatinine 150.7 mg/dL Protein/Creatinin Ratio 0.09 (0-0.19) Urine Total Protein 13 mg/dL SARS-CoV-2 (PCR) Negative SARS-CoV-2 (Negative) Vital signs: Vital Signs - 24 hr 02/29/24 13:36 02/29/24 13:38 02/29/24 13:39 Pulse Rate 112 H Blood Pressure 130/79 Pulse Oximetry 96 92 02/29/24 13:41 02/29/24 13:46 02/29/24 13:51 Pulse Rate Blood Pressure Pulse Oximetry 94 93 94 02/29/24 13:53 02/29/24 13:56 02/29/24 14:01 Pulse Rate 96 Blood Pressure 142/94 H Pulse Oximetry 94 95 02/29/24 14:06 02/29/24 14:09 02/29/24 14:11 Pulse Rate 87 Blood Pressure 127/77 Pulse Oximetry 96 96 02/29/24 14:16 02/29/24 14:21 02/29/24 14:24 Pulse Rate 81 Blood Pressure 127/70 Pulse Oximetry 94 93 02/29/24 14:26 02/29/24 14:31 02/29/24 14:36 Pulse Rate Blood Pressure Pulse Oximetry 94 95 94 02/29/24 14:38 02/29/24 14:41 02/29/24 14:46 Pulse Rate 103 H Blood Pressure 122/64 Pulse Oximetry 96 95 02/29/24 14:51 02/29/24 14:52 02/29/24 14:53 Pulse Rate 85 Blood Pressure 123/73 Pulse Oximetry 97 91 02/29/24 14:56 02/29/24 15:01 02/29/24 15:01 Pulse Rate Blood Pressure Pulse Oximetry 93 93 92 02/29/24 15:06 02/29/24 15:08 02/29/24 15:10 Pulse Rate 84 Blood Pressure 117/72 Pulse Oximetry 94 92 02/29/24 15:11 02/29/24 15:16 02/29/24 15:21 Pulse Rate Blood Pressure Pulse Oximetry 94 94 95 02/29/24 15:23 02/29/24 15:26 02/29/24 15:31 Pulse Rate 83 Blood Pressure 120/72 Pulse Oximetry 96 95 02/29/24 15:36 02/29/24 15:38 02/29/24 15:41 Pulse Rate 85 Blood Pressure 124/69 Pulse Oximetry 96 95 02/29/24 15:46 02/29/24 15:51 02/29/24 15:53 Pulse Rate 83 Blood Pressure 115/68 Pulse Oximetry 97 96 02/29/24 15:56 02/29/24 16:01 02/29/24 16:06 Pulse Rate Blood Pressure Pulse Oximetry 94 95 96 02/29/24 16:08 02/29/24 16:23 02/29/24 16:25 Pulse Rate 87 88 Blood Pressure 117/73 120/72 Pulse Oximetry 99 02/29/24 16:30 Pulse Rate Blood Pressure Pulse Oximetry 98 Fetus (Single) Heart Rate Baseline: 130 Director Of Teenage Activities Variability: Moderate (6-25) Monitor Accelerations: Present Monitor Decelerations: None Final Diagnosis (1) Hx of preeclampsia, prior , currently : Status: Acute (2) AMA (advanced maternal age) multigravida 35+: Status: Acute (3) Elevated blood pressure affecting in third trimester, antepartum: Status: Acute Problem details: Blood pressures and labs WNL with further monitoring
--- NOTE | 2024-02-29 21:02 | PC.OBNST ---
NST Note NST Note Start: 02/29/24 13:40 Freq: ONCE Status: Active Protocol: Document 02/29/24 18:30 JRS (Rec: 02/29/24 21:01 MEE Desktop) NST Note 2 Para (# of births) 1 EDC 04/24/24 Gestational Age In Weeks & Days 32 Weeks & 1 Days Patient Presented with Complaint(s) of Other Other Complaints Sent from clinic for BP monitoring. Pt. also had lower O2 sats while here. Neg . for Covid. Reactive Yes Appropriate for Gestational Age Yes RN Luis Alcantar RN Date 02/29/24 Reactive Yes Appropriate for Gestational Age Yes KEVIN Barton RN Date 02/29/24 OB NST charge Yes Complete NST Note via Write Note Yes The provider's electronic signature indicates the NST is reactive/appropriate for gestational age. *Note to provider: If an addendum is required, open the patient's chart and click on the note under the Nurse/Allied Health tab.
== END 2024-02-29 18:30 | disposition home or self-care (01) ==
LOC: OB OUT 13:26 → OB 13:28
PROVIDERS: Visit Provider Advanced Practice Midwife
DX: O13.3 Gestational [pregnancy-induced] hypertension without significant proteinuria, third trimester (principal); Z3A.37 37 weeks gestation of pregnancy
CPT/HCPCS: 36415; 59025; 82565; 82570; 84156; 84450; 84460; 84520; 85027; 87635; G0463

== ENCOUNTER 2024-03-08 13:44 | Emergency (ER) | payer MEDICAID, SELFPAY ==
[2024-03-08 13:55] VITALS: BP 148/88; PULSE 98; RESP 18; TEMP 36.8; O2SAT 97; BMI 35.1
--- NOTE | 2024-03-08 14:00 | ED.GENADULT ---
HPI - General Adult General Chief complaint: Shortness of Breath/Dyspnea Stated complaint: 33 weeks , shortness of breath Time Seen by Provider: 03/08/24 13:46 History of Present Illness HPI narrative: Patient with MARIA DEL ROSARIO of 04/24/24 complaining of intermittent shortness of breath and sensation of racing heart. Reports no abdominal cramping, spotting or concern for movement. Does report slight increase in left ankle swelling though no headache or vision changes . 33-year-old woman presenting to the emergency department with concern of intermittent shortness of breath and feeling of her heart racing. This has been going on and off over the last few days. Does not seem to correlate with level of activity or position. No fever. She has been more congested lately which she has been attributing to her allergies. She has been uncertain whether not she can take her loratadine. Approximately 33 weeks . More recently some increased ankle swelling. She is not having any pain here. No history of cardiac arrhythmia. Was recommended to come to the emergency department for evaluation it sounds like specifically for pulmonary embolus. Related Data Home Medications ?Medication ?Instructions ?Recorded ?Confirmed aripiprazole 2 mg tablet 2.5 mg PO QDAY 05/25/22 02/29/24 venlafaxine 150 mg 300 mg PO QDAY 05/25/22 02/29/24 capsule,extended release 24 hr buspirone 30 mg tablet 30 mg PO BID 05/26/22 02/29/24 docosahexaenoic acid 200 mg mg PO 09/14/23 02/29/24 capsule ( DHA) Allergies Allergy/AdvReac Type Severity Reaction Status Date / Time No Known Drug Allergies Allergy Verified 02/29/24 12:43 Review of Systems Status of ROS: Reports: 6 or more systems reviewed and unremarkable except as noted in History and below [facility] Medical History Status post vaginal delivery History of abnormal cervical Pap smear ?Z87.42 - Personal history of other diseases of the female genital tract (ICD-10) Obesity with body mass index (BMI) of 30.0 to 39.9 ?E66.9 - Obesity, unspecified (ICD-10) Insomnia ?G47.00 - Insomnia, unspecified (ICD-10) History of traumatic brain injury (2008) ?Z87.820 - Personal history of traumatic brain injury (ICD-10) Granuloma annulare ?L92.0 - Granuloma annulare (ICD-10) Depression ?F32.A - Depression, unspecified (ICD-10) Anxiety ?F41.9 - Anxiety disorder, unspecified (ICD-10) Surgical History History of wisdom tooth extraction ?K08.409 - Partial loss of teeth, unspecified cause, unspecified class (ICD-10) History of oral surgery (2008) ?Z98.890 - Other specified postprocedural states (ICD-10) History of colposcopy with cervical biopsy (2011) ?Z98.890 - Other specified postprocedural states (ICD-10) Family History Father Depression Anxiety Rectal cancer Sister Depression Anxiety Mother No problems noted. Other No family history of breast cancer No family history of cardiovascular disease Social History Narrative: SOCIAL Education: Some college Work: dance coach Partner: Pancho, [employer] Lives with: Pancho, 9 month old Kristal Pets: 2 cats Abuse: Denies past/present Special Diet: Denies Ok with a blood transfusion: yes Culture or taoist beliefs: denies RISK FACTORS Exercise Times/wk: Stretching, usually with kids during class Depression/Anxiety: Both, taking medications; Luda at [facility] manages meds Seat Belt Use: Routinely Smoking: Denies present, Stopped Mar 2022, restarted after , stopped in July Alcohol/day: Denies while , Social drinking prior about 2x per week Caffeine: Soda 2 per day, pepsi Drug Use: Denies past/present Chicken Pox: Vaccinated MRSA: Denies What is your current living situation?: I presently have a place to live Problems where you live: no known problems In the past 12 months, utilities in danger of being shut off: no In past 12 months, lack of transportation kept you from medical appts, meetings, work, or getting things needed for daily living: no In the past 12 mos, have been you worried that your food would run out before you had money to buy more?: never true In the past 12 mos, the food you bought just didn't last and you didn't have money to buy more?: never true Smoking Status: Former smoker Do you use any of these nicotine containing products: None How often does anyone, including family, friends and others, physically hurt you: never How often does anyone, including family, friends and others, insult or talk down to you: never How often does anyone, including family, friends and others, threaten you with harm: never How often does anyone, including family, friends and others, scream or curse at you: never Little interest or pleasure in doing things: several days Feeling down, depressed, or hopeless: several days Exam Narrative: Exam Narrative: Very pleasant. Breathing easily though congested in the nasopharynx. No facial swelling erythema or tenderness. Lungs are clear. Heart in mildly elevated rate. Regular rhythm. Did not hear murmur here though might have expected to in . Abdomen is soft and nontender. Appropriately gravid. Extremities with trace of bilateral ankle edema. No calf tenderness. Negative Homans. Const: Vital Signs, click to edit/add: Vital Signs - 24 hr 03/08/24 13:55 03/08/24 14:39 03/08/24 15:11 Temperature 98.2 F Pulse Rate [Pulse Oximeter] 98 90 81 Respiratory Rate 18 18 20 Blood Pressure [Ri ght Upper Arm] 148/88 H 124/90 H Pulse Oximetry 97 95 96 Oxygen Delivery Me thod Room Air Room Air Room Air Documenting provider has reviewed patient's vital signs: yes Course Vital Signs Vital signs: Initial Vital Signs Temperature 98.2 F 03/08/24 13:55 Temperature Source Temporal Artery Scan 03/08/24 13:55 Pulse Rate 98 03/08/24 13:55 Respiratory Rate 18 03/08/24 13:55 Blood Pressure 148/88 H 03/08/24 13:55 Blood Pressure Mean 108 H 03/08/24 13:55 Pulse Oximetry 97 03/08/24 13:55 Oxygen Delivery Method Room Air 03/08/24 13:55 Vital Signs Temperature 98.2 F 03/08/24 13:55 Pulse Rate 98 03/08/24 13:55 Respiratory Rate 18 03/08/24 13:55 Blood Pressure 148/88 H 03/08/24 13:55 Pulse Oximetry 97 03/08/24 13:55 Oxygen Delivery Method Room Air 03/08/24 13:55 Temperature 98.2 F 03/08/24 13:55 Pulse Rate 81 03/08/24 15:11 Respiratory Rate 20 03/08/24 15:11 Blood Pressure 124/90 H 03/08/24 14:39 Pulse Oximetry 96 03/08/24 15:11 Oxygen Delivery Method Room Air 03/08/24 15:11 Medical Decision Making MDM Narrative Medical decision making narrative: Seems generally well. I think recommendations to come in were due to concerns for potential pulmonary embolus. Certainly high risk in but otherwise does not appear to have consistent symptoms pulmonary embolus. Peripheral edema not unexpected for . She is congested with congestion of later or perhaps allergies contributing to some of the sensation of dyspnea. I suppose there could be a tachyarrhythmia. Symptoms again are intermittent not consistent with significant pulmonary embolus. In fact scores less than 2% chance on PERC rule. Would check an EKG. Possibly chest x-ray. Screen for COVID/influenza In discussion with Rosina decided to defer chest x-ray at this time. EKG as below is reassuring. Otherwise well. No events on monitor during time in the emergency department. See patient discharge plan for further discussion Lab Data Labs: Lab Results 03/08/24 Range/Units 14:15 SARS-CoV-2 (PCR) Negative SARS-CoV-2 (Negative) Influenza Type A (PCR) Negative PCR FLU A (Negative) Influenza Type B (PCR) Negative PCR FLU B (Negative) ECG Data Attestation: I personally reviewed and interpreted this ECG as follows: (Normal sinus rhythm at a rate of 90. No ischemic changes. No delta waves.) Discharge Plan Discharge Clinical Impression: Seasonal allergies, Dyspnea Patient Disposition: Home, Self-Care Condition: Stable Additional Instructions: The monitoring and EKG here today look good. I would say you could take loratadine for allergies if necessary. Be seen/return for persistent increased shortness of breath, chest pain, lightheadedness, racing heart. I will call you if the swab test is positive Prescriptions: No Action DHA 200 mg capsule PO aripiprazole 2 mg tablet 2.5 mg PO QDAY venlafaxine 150 mg capsule,extended release 24hr 300 mg PO QDAY buspirone 30 mg tablet 30 mg PO BID Follow Up/Referrals: Provider,Not a Local [Primary Care Provider] - Stand Alone Forms: [place] [employer] Info Instructions
[2024-03-08 14:39] VITALS: BP 124/90; PULSE 90; RESP 18; O2SAT 95
[2024-03-08 15:11] VITALS: PULSE 81; RESP 20; O2SAT 96
[2024-03-08 15:21] LABS: PCR FLU A Negative PCR FLU A (Negative); PCR FLU B Negative PCR FLU B (Negative); SARS PCR* Negative SARS-CoV-2 (Negative)
== END 2024-03-08 15:19 | disposition home or self-care (01) ==
PROVIDERS: Emergency Provider Family Medicine
DX: R06.00 Dyspnea, unspecified (principal)
CPT/HCPCS: 87631; 93005; 99284

== ENCOUNTER 2024-03-14 14:40 | Outpatient (CLI) | payer MEDICAID, SELFPAY | END 2024-03-14 14:41 | disposition home or self-care (01) | PROVIDERS: Visit Provider Advanced Practice Midwife | DX: O13.3 Gestational [pregnancy-induced] hypertension without significant proteinuria, third trimester (principal); Z3A.34 34 weeks gestation of pregnancy | CPT/HCPCS: 82565; 82570; 84156; 84450; 84460; 84520 ==

== ENCOUNTER 2024-03-17 12:12 | Outpatient (CLI) | payer MEDICAID, SELFPAY ==
--- NOTE | 2024-03-17 12:15 | CRLHL7_ITS ---
For Patients: As a result of the Century Cures Act, medical imaging exams and procedure reports are released immediately into your electronic medical record. You may view this report before your referring provider. If you have questions, please contact your health care provider. INDICATION: GESTATIONAL HTN TECHNIQUE: Real time ornelas scale imaging of the fetus was performed. COMPARISON: 12/06/2023 FINDINGS: Sonographic imaging demonstrates a single living intrauterine gestation. Fetus demonstrates a regular cardiac rate of 144 beats per minute. Fetus has a vertex position. The placenta lies anteriorly. Amniotic fluid volume single deepest pocket of 8.3 cm. KEVIN 25.9 cm. The estimated weight is 2608gm which lies at the 63rd %. On the prior OB ultrasound dated 12/06/2023 the estimated weight was at the 83rd percentile. The fetus was active and demonstrated normal breathing movements. There was normal flexion and extension of the trunk and extremities. IMPRESSION: Normal biophysical profile score 8/8. Sonographic gestational age 34 weeks 3 days and sonographic due date of 04/25/2024. Good correlation with dates. Estimated weight 63rd percentile. Abdominal circumference 91st percentile. Amniotic fluid SDP 8.3 cm. KEVIN 25.9 cm. Dictated by Roberth Joya MD @ 03/17/2024 1:02:08 PM (Electronically Signed)
== END 2024-03-17 12:13 | disposition home or self-care (01) ==
LOC: US 12:13
PROVIDERS: Visit Provider Advanced Practice Midwife
DX: O13.3 Gestational [pregnancy-induced] hypertension without significant proteinuria, third trimester (principal); Z3A.34 34 weeks gestation of pregnancy
CPT/HCPCS: 76816; 76819

== ENCOUNTER 2024-03-23 12:05 | Outpatient (CLI) | payer MEDICAID, SELFPAY ==
--- NOTE | 2024-03-23 12:15 | CRLHL7_ITS ---
For Patients: As a result of the Century Cures Act, medical imaging exams and procedure reports are released immediately into your electronic medical record. You may view this report before your referring provider. If you have questions, please contact your health care provider. INDICATION: Gestational hypertension. COMPARISON: OB ultrasound 03/17/2024. TECHNIQUE: Ultrasound OB pelvis biophysical profile. Real time ornelas scale imaging of the fetus was performed without non-stress testing. FINDINGS: Sonographic imaging demonstrates a single living intrauterine gestation. The fetus demonstrates a regular cardiac rate of 159 beats per minute. The fetus has a cephalic orientation. The placenta lies anteriorly. The cervix is closed and measures 2.7 cm in length. Single deepest pocket measures 8.7 cm and the amniotic fluid index measures 21.6 cm. (2/2). The fetus was active (2/2). There was normal flexion and extension of the trunk and extremities (2/2). The fetus demonstrated normal breathing movements (2/2). IMPRESSION: 1. Normal biophysical profile score 8 out of 8. 2. KEVIN is within normal limits on today`s exam measuring 21.6 cm, previously 25.9 cm. Dictated by Bridget Tinsley MD @ 03/24/2024 2:53:49 AM (Electronically Signed)
== END 2024-03-23 12:06 | disposition home or self-care (01) ==
LOC: US 12:06
PROVIDERS: Visit Provider Advanced Practice Midwife
DX: O13.9 Gestational [pregnancy-induced] hypertension without significant proteinuria, unspecified trimester (principal)
CPT/HCPCS: 76819; 82565; 82570; 84156; 84450; 84460; 84520

== ENCOUNTER 2024-03-28 14:26 | Outpatient (CLI) | payer MEDICAID, SELFPAY ==
--- NOTE | 2024-03-28 14:45 | CRLHL7_ITS ---
For Patients: As a result of the Century Cures Act, medical imaging exams and procedure reports are released immediately into your electronic medical record. You may view this report before your referring provider. If you have questions, please contact your health care provider. INDICATION: Hypertension TECHNIQUE: Ultrasound OB pelvis transabdominal. Real-time ornelas-scale imaging of the fetus was performed without stress testing. COMPARISON: Ob ultrasound 03/23/2024 FINDINGS: heart rate: Regular, 131 bpm. position: Cephalic. Amniotic fluid volume single deepest pocket 9.6 cm, KEVIN with 25.64 centimeter 2/2. motion 2/2, reportedly though no images taken. tone 2/2, reportedly though no images were taken. breathing movements 2/2, reportedly though no images were taken. Placenta: Anterior. IMPRESSION: Single viable intrauterine with a biophysical profile 02/09. Borderline polyhydramnios with KEVIN of 25.6 centimeters. Dictated by Lauren Liang MD @ 03/29/2024 3:29:18 PM (Electronically Signed)
== END 2024-03-28 14:27 | disposition home or self-care (01) ==
LOC: US 14:27
PROVIDERS: Visit Provider Obstetrics & Gynecology
DX: O13.3 Gestational [pregnancy-induced] hypertension without significant proteinuria, third trimester (principal); Z3A.36 36 weeks gestation of pregnancy
CPT/HCPCS: 76819

== ENCOUNTER 2024-03-30 12:03 | Outpatient (CLI) | payer MEDICAID, SELFPAY ==
[2024-03-31 13:34] LABS: Strep B DNA Probe Negative (Negative)
[2024-03-31 13:39] LABS: Strep B Susceptibility Needed? No
== END 2024-03-30 12:04 | disposition home or self-care (01) ==
LOC: NFLDREF 13:26
PROVIDERS: Advanced Practice Midwife; Visit Provider Advanced Practice Midwife
DX: Z34.93 Encounter for supervision of normal pregnancy, unspecified, third trimester (principal); O13.3 Gestational [pregnancy-induced] hypertension without significant proteinuria, third trimester; O09.523 Supervision of elderly multigravida, third trimester; Z3A.36 36 weeks gestation of pregnancy
CPT/HCPCS: 76819; 82565; 82570; 84156; 84450; 84460; 84520; 87081; 87653

== ENCOUNTER 2024-04-02 19:35 | Inpatient (IN) | payer MEDICAID, SELFPAY ==
[2024-04-02 19:46] VITALS: BMI 35.6
[2024-04-02 19:57] VITALS: BP 135/99; PULSE 105
[2024-04-02 20:15] VITALS: BP 135/88; PULSE 86; RESP 18; TEMP 37
[2024-04-02 20:19] LABS: Basophils Absolute Auto 0.03 K/uL (0.00-0.30); Basophils Percent Auto 0.4 % (0.0-3.0); Eosinophils Absolute Auto 0.09 K/uL (0.00-0.50); Eosinophils Percent Auto 1.2 % (0.0-7.0); Hematocrit 36.7 % (33.0-51.0); Hemoglobin* 12.5 gm/dL (12.0-16.0); Immature Granulocytes Abs Auto 0.05 K/uL (0.00-0.30); Immature Granulocytes Pct Auto 0.7 %; Lymphocytes Absolute Auto 1.82 K/uL (0.90-2.90); Lymphocytes Percent Auto 24.2 % (20-44); Mean Corpuscular HGB Conc 34 gm/dL (32-36); Mean Corpuscular Hemoglobin 31 pg (26-34); Mean Corpuscular Volume 90 fL (80-100); Monocytes Percent Auto 9.6 % (0.0-11.0); Neutrophils Absolute Auto 4.82 K/uL (1.7-7.0); Neutrophils Percent Auto 63.9 % (42.0-72.0); Platelet Count* 194 K/uL (140-440); RDW Coefficient of Variation % 12.6 % (11.5-15.5); White Blood Count* 7.53 K/uL (4.50-11.00)
[2024-04-02 20:20] LABS: Slide Review Reflex No
[2024-04-02] MEDS: miSOPROStoL 25 MCG/0.25 TABLET VAGINAL (20:34)
[2024-04-02] MEDS: CALCIUM CARBONATE 500 MG CHEW PO (20:47)
--- NOTE | 2024-04-02 21:25 | P.OBHP_ITS ---
OB - H&P: HPI Labor/Induction History of Present Illness Date Seen: 04/02/24 Chief Complaint: Rosina is a 33 year old 2 para 1 at 36 6/7 weeks gestation by LMP, who presents for IOL for GHTN. Chief complaint: IOL for Gest HTN : 2 Para: 1 Date of last menstrual period: 07/19/23 Estimated date of delivery: 04/24/24 Gestational age based on last menstrual period: 36 Indications for induction: induced hypertension Narrative: Rosina Ku is a 33 year old female who presents for IOL for GHTN. She reports she lost her mucous plug over the weekend but denies any cramping or contractions. Her blood pressures at home have been 130-140s/80-90's at home. She denies any headache, blurred vision, or epigastric pain at this time. She has received routine care. IMAGINst trimester: 09/14/2023 IMPRESSION: Gestational age calculated at 8 weeks 0 days with a sonographic due date of 04/25/2024. Chorionic bump appears to be present, possibly associated with a guarded prognosis for early although some have suggested that this risk is over estimated. Left-sided subchorionic hemorrhage measuring 2.5 x 0.8 x 2.7 cm. Dictated by Roberth Joya MD @ 09/14/2023 9:00:40 AM Anatomy scan: 12/06/2023 IMPRESSION: 1. Living fetus with gestational age of 20 weeks by LMP and 20 weeks 1 day by today`s measurements. EDC based on LMP is 04/24/2024. 2. No anomaly evident. 3. Eccentric placental cord insertion 3.5 cm from the placental margin and question of small adjacent amniotic band. Dictated by Bryan Bocanegra MD @ 12/07/2023 8:35:26 PM Others: Follow-up: [facility] Level II 12/27/2023: No anomalies detected, growth parameters are consistent with MARIA DEL ROSARIO, placenta cord insertion is normal, small uterine synechiae is seen. EFW 61%ile. 03/17/2024: IMPRESSION: Normal biophysical profile score 8/8. Sonographic gestational age 34 weeks 3 days and sonographic due date of 04/25/2024. Good correlation with dates. Estimated weight 63rd percentile. Abdominal circumference 91st percentile. Amniotic fluid SDP 8.3 cm. KEVIN 25.9 cm. Dictated by Roberth Joya MD @ 03/17/2024 1:02:08 PM 03/23/2024 IMPRESSION: 1. Normal biophysical profile score 8 out of 8. 2. KEVIN is within normal limits on today`s exam measuring 21.6 cm, previously 25.9 cm. Dictated by Bridget Tinsley MD @ 03/24/2024 2:53:49 AM 03/28/2026 IMPRESSION: Single viable intrauterine with a biophysical profile 8/8. Borderline polyhydramnios with KEVIN of 25.6 centimeters. Dictated by Lauren Liang MD @ 03/29/2024 3:29:18 PM 03/30/2024 IMPRESSION: Normal biophysical profile score of 8 out of 8. Dictated by Roberth Joya MD @ 03/30/2024 4:14:06 PM Specific Issues/Plans Partner: Pancho # GHTN Elevated BP in clinic and in subsequent ER visit elevated BP at 12wks on Effexor, possible SE? vs CHTN baseline labs ordered all WNL, 24 urine-11 Labs at triage visit WNL Growth US at 34 weeks: 63%ile Twice weekly testing with BPP/NST: scheduled Weekly pre-e labs IOL at 37 0/7 weeks: Consent signed, scheduled for 04/03/2024 at 7 am #Borderline Mild Polyhydramnios KEVIN 25.9 at 34 weeks KEVIN 21.6 weeks KEVIN 25.64 # Closely spaced Daughter was 9 months at NOB # AMA at time of delivery Offered genetic screening: declined; Completed with Level II [facility] at [facility] Recommend Level II US: initially declined, sent after abnormal finding # Hx of Pre-e Recommend baby ASA-taking Baseline labs WNL # Anxiety & Depression, w/ hx of suicide attempts Stable on Effexor, buspirone, and Aripirazole Seeing Psych JUSTA Flores DNP at [facility] She was requesting labs for her [facility] provider, not certain which were needed and was going to reach out to them, consider adding to 28 week labs if more needed # Nicotine abuse Stopped smoking in July 28, did not smoke during last time # Hx of GDM Recommend early gtt: passed 28 week testing-passed # Hx of growth restriction Consider 3rd trimester growth US: EFW 63%ile # Chorionic bump on 1st US No follow-up needed per radiology # Eccentric placental cord insertion 3.5 cm from the placental margin and question of small adjacent amniotic band. recommended level 2 US- see below Ultrasounds: [facility] Level II 12/27/2023: No anomalies detected, growth parameters are consistent with MARIA DEL ROSARIO, placenta cord insertion is normal, small uterine synechiae is seen. EFW 61%ile. Tdap: 02/15/2024 RSV: 03/14/24 History of Present Dating criteria: based on LMP care: good care Ultrasounds: normal 1st trimester US and normal mid trimester US complications: gestational hypertension Medical complications: none Labs Blood type: O (+) positive Rubella: immune GBS status: negative Review of Systems Status of ROS: Reports: 10 or more systems reviewed and unremarkable except as noted in History and below Meds Home Medications and Allergies Home Medications ?Medication ?Instructions ?Recorded ?Confirmed ?Type aripiprazole 2 mg tablet 2.5 mg PO QDAY 05/25/22 04/02/24 History venlafaxine 150 mg 300 mg PO QDAY 05/25/22 04/02/24 History capsule,extended release 24 hr buspirone 30 mg tablet 30 mg PO BID 05/26/22 04/02/24 History docosahexaenoic acid 200 mg 200 mg PO DAILY 09/14/23 04/02/24 History capsule ( DHA) Allergies Allergy/AdvReac Type Severity Reaction Status Date / Time No Known Drug Allergies Allergy Verified 04/02/24 19:57 OB - H&P: Exam Physical Exam: Vital signs: Temp Pulse Resp BP 98.6 F 86 18 135/88 04/02/24 20:15 04/02/24 20:15 04/02/24 20:15 04/02/24 20:15 Narrative: Vitals Reviewed Constitutional:? Alert and oriented x3 HEENT:? Normocephalic, atraumatic Neck:? Supple Lungs:? Clear to auscultation bilaterally Heart:? Regular rate and rhythm, no murmur, rub or gallop Abdomen:? Soft, nontender, and gravid. Vertex by Darvin's, confirmed with cervical exam. Extremities:? No edema or erythema Cervix: 3 cm/60%/-2 station/vertex NST: 140 bpm/moderate variability/15x15 accelerations/no decelerations/contractions irregular/occasional Constitutional: Constitutional: no acute distress OB - Results Labs Labs: Short CBC 04/02/24 Range/Units 20:13 WBC 7.53 (4.50-11.00) K/uL Hgb 12.5 (12.0-16.0) gm/dL Hct 36.7 (33.0-51.0) % Plt Count 194 (140-440) K/uL OB - Problem Based A/P Additional Plan (1) Encounter for induction of labor: Status: Acute (2) Gestational hypertension: Status: Acute (3) Polyhydramnios affecting in third trimester: Status: Acute (4) Hx of preeclampsia, prior , currently : Status: Acute (5) Obesity with body mass index (BMI) of 30.0 to 39.9: Status: Chronic (6) Depression: Problem details: Sees Luda Flores at [facility]. Hx suicide attempt x2. Most recent 02/2017. IP hospitalization 3 days. Status: Chronic (7) Anxiety: Status: Acute Plan ASSESSMENT:? 33 yo at 36.6 weeks gestation? complicated by:?GHTN, Mild Polyhydramnios, Closely spaced , hx of pre-e, Anxiety and depression, hx of GDM, nitocine abuse, hx of growth restriction, eccentric cord insertion Labor type: Induced labor? Category 1 FHR pattern.?? GHTN Prepregnancy BMI >30 Labor complicated by: GHTN? GBS negative? ? PLAN:? 1. Routine intrapartum cares as ordered. Discussed options of management including cytotec, pitocin, and AROM. At this time, her cervix is favorable but because we are prior to midnight, not yet 37 weeks, we discussed using Cytotec x1 and switching to AROM vs Pitocin after midnight. She is agreeable to plan. 2. Monitoring per policy, continuous with HTN? 3. Planning unmedicated . Candidate for analgesia of choice, if desired.?? 4. Patient encouraged to reposition and ambulate to promote physiologic labor and .? 5. Monitor BP per protocol, monitor for s/sx of pre-eclampsia. Labs drawn on admission pending. 6. Anticipate ? Delivery/Labor/Induction Plan Plan: induction Induction method: per misoprostol protocol (Switch to pitocin or AROM possibly after 1 dose)
[2024-04-02 21:26] VITALS: BP 123/87; PULSE 81
[2024-04-02 21:39] LABS: Alanine Aminotransferase* 12 U/L (4-35); Aspartate Amino Transferase* 23 U/L (12-35); Blood Urea Nitrogen* 11 mg/dL (5-24); Creatinine* 0.7 mg/dL (0.5-1.5); Est. Creatinine Clearance* 93.68; Estimated Glomerular Filt Rate 116 ml/min
[2024-04-02 22:01] VITALS: RESP 18; TEMP 36.9
[2024-04-02 22:08] LABS: Total Protein Urine 21 mg/dL
[2024-04-02 22:09] LABS: Creatinine Urine 196.6 mg/dL; Protein Creatinine Ratio Urine 0.11 (0-0.19)
[2024-04-02 22:26] VITALS: BP 116/74; PULSE 78
[2024-04-02 23:26] VITALS: BP 124/75; PULSE 67
[2024-04-03] VITALS (22 sets, daily range): BP systolic 120–162; BP diastolic 67–94; PULSE 63–83; RESP 15–18; TEMP 36.6–37.1; O2SAT 94–99
[2024-04-03] MEDS: OXYTOCIN 30 unit/500 ML in NS 30 UNIT/500 ML BAG IVPB (00:13)
[2024-04-03] MEDS: LACTATED RINGERS 1000 ML 1,000 ML 123 ML IV (00:14)
--- NOTE | 2024-04-03 07:32 | W.PM.OBVAGDE ---
OB Procedure Vag Delivery Mother Details Mother Details: Rosina is a 33 year-old, 2, now Para 2, admitted on 04/02/24 at 36.6 weeks gestation for IOL for GHTN. : 2 Para: 2 Weeks Gestation: 37.0 Admission Date: 04/03/24 Additional Details Amniotic Membrane Status: AROM Amniotic Membrane Rupture Date: 04/03/24 Amniotic Membrane Rupture Time: 02:58 Amniotic Membrane Fluid Description: Clear Analgesia/Anesthesia Type: None Waterbirth: No Pitcoin: Yes ([facility] only) Intrapartal Events: Labor Induction and Precipitous Labor <3 Hrs Labor Onset: 03:15 Complete: 04:20 Pushin:20 Heart: heart tones during second stage were reassuring. Delivery Details Delivery Date: 04/03/24 Delivery Time: 04:25 Route of delivery: Gender: Female Infant Viability: Alive; Heart Rate Present Position at Delivery: OA Delivery Details: Patient was admitted for induction of labor. Her IOl was started with cytotec x1 dose. Pitocin was started at midnight and she was feeling mildly uncomforable but requested AROM. Performed AROM of clear fluid at 0258. She became more uncomfortable shortly after AROM and noted an urge to push. Patient was assumed complete with pushing at 0420. of a viable female at 0425, semi-reclined on the bed. Vertex delivered OA. No nuchal cord or shoulder. Body delivered easily and without incident. passed to mothers abdomen with a vigorous cry. Cord was clamped and cut at <60 seconds and taken to the warmer by RN. APGARS were 5 at one minute and 6 at five minutes and 7 at ten minutes respectively. Mouth was bulb suctioned but needed CPAP/PPV at the warmer for a period of time. Peds was called to come assess. Intact placenta with a 3 vessel cord delivered spontaneously at 0434. Fundus firm. Intact perineum. QBL 100 cc. Mother and baby stable; mother plans to breastfeed. weight 6 lb 7oz. 1 Minute Interval Total Score: 5 5 Minute Interval Total Score: 6 10 Minute Interval Total Score: 7 Additional Details Shoulder Dystocia: No Placenta Delivery Time: 04:34 Placental Delivery Description: Spontaneous Procedure Done: Global Blood Loss: 100 Laceration: None Blood Loss Measurement Type: QBL Bakri Used: No Sponge/Need Count Correct: Yes Cord Vessel Description: 3 Vessels Event Summary Status: Mother and infant were stable after delivery. Provider was notified of elevated BP . With continued monitoring she had a subsequent elevated and RN notified Dr. Lawrence who recommended the start of BP medications. Oncoming CNM notified. Disposition: floor
[2024-04-03] MEDS: NIFEdipine 30 MG TAB.ER.24 PO (07:42)
[2024-04-03] MEDS: DOCUSATE SODIUM 100 MG CAPSULE PO (07:43)
[2024-04-03 07:51] LABS: Hemoglobin* 13.1 gm/dL (12.0-16.0); Mean Corpuscular HGB Conc 34 gm/dL (32-36); Mean Corpuscular Hemoglobin 30 pg (26-34); Mean Corpuscular Volume 91 fL (80-100); Platelet Count* 187 K/uL (140-440); Red Blood Count 4.31 m/uL (4.00-5.20); White Blood Count* 13.38 K/uL (4.50-11.00)
[2024-04-03 07:59] LABS: Slide Review Reflex No
[2024-04-03 08:14] LABS: Alanine Aminotransferase* 12 U/L (4-35); Aspartate Amino Transferase* 25 U/L (12-35); Blood Urea Nitrogen* 8 mg/dL (5-24); Creatinine* 0.7 mg/dL (0.5-1.5); Est. Creatinine Clearance* 93.68; Estimated Glomerular Filt Rate 116 ml/min
[2024-04-03] MEDS: IBUPROFEN 600 MG TABLET PO (21:10)
[2024-04-04] VITALS (7 sets, daily range): BP systolic 130–142; BP diastolic 82–90; PULSE 68–80; RESP 14–18; TEMP 36.6–36.8; O2SAT 95–97
--- NOTE | 2024-04-04 08:28 | P.OBPN_ITS ---
Documented by User: Antonina Warren CNM 04/04/24 10:25 OB - PN:Subj Subjective Time Seen by Provider: 08:28 Date Seen: 04/04/24 Patient comments OB post-: no complaints, pain well controlled and tolerating diet [place] infant status: and doing well feeding status: exclusively Narrative: Day 1:? Vaginal Delivery at 36 and 6/7 weeks.? ?? Complications:? gHTN? Rosina feels well.? Her pain is well controlled with current medications.? She has no new complaints.? Urinary output is adequate and she is voiding without difficulty.? Has a good appetite, is tolerating a general diet, is passing flatus, and has not had a bowel movement.? Has scant amount of rubra lochia.? She is ambulating well.? OB - PN: Obj Exam Physical Exam: Vital signs: Temp Pulse Resp BP Pulse Ox O2 Del Method 98.2 F 71 16 130/90 H 97 Room Air 04/04/24 04:48 04/04/24 04:48 04/04/24 04:48 04/04/24 04:48 04/04/24 04:48 04/04/24 04:48 OB - PN: A/P Delivery Assessment and Plan (1) care and examination of lactating mother: Status: Acute Assessment and Plan: 33 year old on day 1.? (2) Gestational hypertension: Status: Acute Assessment and Plan: BP continues to be mildly elevated, 130/90; increase dose of Nifedipine to 60mg today. (3) Depression: Problem details: Sees Luda Flores at [facility]. Hx suicide attempt x2. Most recent 02/2017. IP hospitalization 3 days. Status: Chronic Assessment and Plan: Continue to monitor PP. (4) Anxiety: Status: Acute Plan Comments: 1. cares.? 2. Anticipate discharge tomorrow.? Documented by User: Padmini Lane CNM 04/05/24 07:24 OB - PN: Obj Exam 2 Physical Exam: Narrative: GENERAL APPEARANCE:? normal affect, alert, no distress MOOD:? appropriate CHEST:? clear to auscultation HEART:? regular rate and rhythm ABDOMEN:? soft, non-tender the uterine fundus is At Umbilicus, Midline and is appropriate for the stage of recovery. PERINEUM:? mild edema of the perineum. EXTREMITIES:? normal and no edema OB - PN: A/P Delivery Assessment and Plan (1) care and examination of lactating mother: Status: Acute (2) Gestational hypertension: Status: Acute (3) Depression: Problem details: Sees Luda Flores at [facility]. Hx suicide attempt x2. Most recent 02/2017. IP hospitalization 3 days. Status: Chronic (4) Anxiety: Status: Acute
[2024-04-04] MEDS: DOCUSATE SODIUM 100 MG CAPSULE PO (09:39)
[2024-04-04] MEDS: ARIPiprazole 10 MG TABLET 2.5 MG PO (09:39)
[2024-04-04] MEDS: NIFEdipine 30 MG TAB.ER.24 60 MG PO (09:39)
[2024-04-04 13:12] LABS: Rapid Plasma Reagin (RPR) Non Reactive (Non Reactive)
[2024-04-04] MEDS: CALCIUM CARBONATE 500 MG CHEW PO (23:55)
[2024-04-05 04:21] VITALS: BP 143/98; PULSE 68; RESP 18; TEMP 37.2; O2SAT 98
[2024-04-05] MEDS: IBUPROFEN 600 MG TABLET PO ×2 (04:22→13:00)
[2024-04-05 04:38] VITALS: BP 133/91
[2024-04-05 08:13] VITALS: BP 129/89; PULSE 81; RESP 16; TEMP 36.5; O2SAT 97
--- NOTE | 2024-04-05 08:38 | P.DS_ITS ---
DS: Providers Provider Date Seen: 04/05/24 Date of admission: 04/02/24 19:35 Primary care physician: Not a Local Provider Admitting Clinician: Padmini Lane CNM Attending Physician on discharge: Padmini Lane CNM DS: Diagnosis Discharge Diagnosis (1) care and examination of lactating mother: Status: Acute (2) Gestational hypertension: Status: Acute Exam Narrative: Exam Narrative: GENERAL APPEARANCE:? normal affect, alert, no distress MOOD:? appropriate CHEST:? clear to auscultation HEART:? regular rate and rhythm ABDOMEN:? soft, non-tender the uterine fundus is 1 below Umbilicus, Midline and is appropriate for the stage of recovery. PERINEUM:? mild edema of the perineum. EXTREMITIES:? normal and no edema Const: Vital Signs, click to edit/add: Vital Signs - 24 hr 04/04/24 08:57 04/04/24 09:38 04/04/24 14:00 Temperature 97.9 F 97.8 F Pulse Rate [Pulse Oximeter] 73 79 Respiratory Rate 16 14 Blood Pressure [Le ft Arm] 133/83 133/88 134/87 Pulse Oximetry 97 97 Oxygen Delivery Me thod Room Air Room Air 04/04/24 18:15 04/04/24 20:49 04/04/24 23:42 Temperature 98.1 F 98.0 F 97.9 F Pulse Rate [Pulse Oximeter] 74 80 68 Respiratory Rate 14 14 18 Blood Pressure [Le ft Arm] 142/89 H 136/86 131/82 Pulse Oximetry 97 97 95 Oxygen Delivery Me thod Room Air Room Air Room Air 04/05/24 04:21 04/05/24 04:38 04/05/24 08:13 Temperature 98.9 F 97.7 F Pulse Rate [Pulse Oximeter] 68 81 Respiratory Rate 18 16 Blood Pressure [Le ft Arm] 143/98 H 133/91 H 129/89 Pulse Oximetry 98 97 Oxygen Delivery Me thod Room Air Room Air Documenting provider has reviewed patient's vital signs: yes OB - DS: Summary Hospital Course Hospital Course: Rosina is a 33 y.o. G 2 P 2 who was admitted to [facility] for induction of labor for GHTN. ?She had a NVD that was uncomplicated. The patient feels well. ?The pain is well controlled with current medications. ?She has no new complaints. ?She is breast feeding and reports things are going well. the patient has done well.? Vitals have been stable.? She has remained afebrile.? Has a good appetite, is tolerating a general diet. ?She is voiding without difficulty.? She is passing gas and has not had a bowel movement.? She is ambulating and denies any dizziness.? Has small amount of rubra lochia. She is considering options for prevention. Problems: Elevated BP , mild range plan: Discharge home with baby. Follow up in 2 weeks and 6 weeks. , may see if needed Hgb 13.1. GHTN diagnosed by elevated BP greater than 4 hours apart during Labs WNL on admission and stable Discharge home with BP cuff if does not already have one Follow up in 3-5 days Call for signs/symptoms of preeclampsia Peripartum Data Infant delivery method: Vaginal complications: none [place] Gender: Female Infant Discharge Plan: Home Status at Discharge Functional status at discharge: independent ambulation Overall status at discharge: patient is progressing back to baseline Time Spent with Patient Time attestation: Total time spent providing and/or coordinating discharge services: Time spent: Less than 30 minutes Discharge Plan Discharge Disposition: Home, Self-Care Date of Admission: 04/02/24 19:35 Attending Provider on Discharge: Padmini Lane Primary Care Provider: Provider,Not a Local Condition: Stable Anticipated Discharge Date/Time: 04/05/24 12:00 Discharge Medications: New acetaminophen 500 mg Tablet 1,000 mg PO Q6H PRNQty: 0 0RF docusate sodium 100 mg Capsule 100 mg PO DAILY Qty: 90 0RF ibuprofen 600 mg Tablet 600 mg PO Q6H PRNQty: 60 0RF nifedipine 60 mg tablet extended release 60 mg PO DAILY Qty: 30 1RF Continued DHA 200 mg capsule 200 mg PO DAILY aripiprazole 2 mg tablet 2.5 mg PO QDAY venlafaxine 150 mg capsule,extended release 24hr 300 mg PO QDAY buspirone 30 mg tablet 30 mg PO BID Discharge Orders: Discharge Order (Routine); Ordered 04/05/24 Ordered By: Padmini Lane Patient Education: OB Over the Counter Medication Information, OB Vaginal/Breast Feeding Additional Instructions: Discharge instructions were reviewed with the patient including signs and symptoms of infection and home going medications Nothing vaginally for 6 weeks: no tampons or intercourse Off Work or School for 6 weeks Follow [facility] for a BP check?3-5 days Call with: * BP greater than or equal to 160/110 or sustained above 140/90's * Severe headache that doesn't improve after taking medications * Changes in vision, including temporary loss of vision, blurred vision, and/or light sensitivity * Upper abdominal pain (usually under ribs on the right side) 2-week visit: discuss feeding concerns, review control options and screen for anxiety/depression. 6-week visit for an annual exam. consultation services are available to all mothers and babies for the first year after delivery.? To make an appointment, please call [phone]. Activity Level: Activity as Tolerated Discharge Diet: Regular Follow Up Appointments: [facility] [Provider Group] Forms: [employer] Info Instructions
[2024-04-05] MEDS: ARIPiprazole 10 MG TABLET 2.5 MG PO (08:56)
[2024-04-05] MEDS: NIFEdipine 30 MG TAB.ER.24 60 MG PO (08:58)
[2024-04-05] MEDS: DOCUSATE SODIUM 100 MG CAPSULE PO (08:58)
[2024-04-05 09:12] LABS: Hemoglobin* 13.6 gm/dL (12.0-16.0); Mean Corpuscular HGB Conc 33 gm/dL (32-36); Mean Corpuscular Hemoglobin 30 pg (26-34); Mean Corpuscular Volume 92 fL (80-100); Platelet Count* 205 K/uL (140-440); Red Blood Count 4.47 m/uL (4.00-5.20); White Blood Count* 9.35 K/uL (4.50-11.00)
[2024-04-05 09:21] LABS: Slide Review Reflex No
[2024-04-05 09:39] LABS: Alanine Aminotransferase* 13 U/L (4-35); Aspartate Amino Transferase* 24 U/L (12-35); Blood Urea Nitrogen* 10 mg/dL (5-24); Creatinine* 0.7 mg/dL (0.5-1.5); Est. Creatinine Clearance* 93.68; Estimated Glomerular Filt Rate 116 ml/min
[2024-04-05 13:09] VITALS: BP 132/85; PULSE 85; RESP 16; TEMP 36.2; O2SAT 95
== END 2024-04-05 15:30 | disposition home or self-care (01) | DRG 560 ==
PROVIDERS: Admitting Provider Advanced Practice Midwife; Visit Provider Advanced Practice Midwife
DX: O13.4 Gestational [pregnancy-induced] hypertension without significant proteinuria, complicating childbirth (principal); O99.344 Other mental disorders complicating childbirth; F41.9 Anxiety disorder, unspecified; F32.A Depression, unspecified; O43.123 Velamentous insertion of umbilical cord, third trimester; O40.3XX0 Polyhydramnios, third trimester, not applicable or unspecified; Z86.32 Personal history of gestational diabetes; Z3A.36 36 weeks gestation of pregnancy; Z37.0 Single live birth
CPT/HCPCS: 36415; 82565; 82570; 84156; 84450; 84460; 84520; 85025; 85027; 86592; 86850; 86900; 86901; 88307; A9270; J7120

== ENCOUNTER 2024-04-07 13:47 | Outpatient (CLI) | payer BC, SELFPAY | END 2024-04-07 13:48 | disposition home or self-care (01) | PROVIDERS: Visit Provider Obstetrics & Gynecology | DX: O13.3 Gestational [pregnancy-induced] hypertension without significant proteinuria, third trimester (principal); Z3A.37 37 weeks gestation of pregnancy | CPT/HCPCS: 82565; 82570; 84156; 84450; 84460; 84520 ==

== ENCOUNTER 2024-04-08 08:33 | Outpatient (CLI) | payer BC, SELFPAY ==
--- NOTE | 2024-04-08 08:45 | PM.OBLDTN ---
OB - Triage/Final Diagnosis Visit Information Time Seen by Provider: 08:46 Date Seen: 04/08/24 Narrative: Rosina is a 33yo seen on PPD5 for blood pressure check and HELLP labs. Patient is status post on 04/03/2024 with [facility] Service, following induction of labor for gestational hypertension. She was seen yesterday in the clinic by Dr. Moreno Carpenter, where her antihypertensive regimen was modified to nifedipine 60 mg q.a.m. and 30 mg q.p.m.. Preeclampsia labs were obtained and notable for platelets of 282, creatinine of 0.8 (from 0.7) and AST of 48 (from 24) and ALT of 23 (from 13). UPCR was normal at 0.08. This morning, patient notes she is feeling well. She took nifedipine 60mg at 0815. She denies a headache, vision changes or RUQ pain. She has no other concerns. Evaluation Vital signs: Please see EMR for complete VS assessment. BPs: - 142/91 - 128/85 General: Alert and oriented, in no acute distress Heart: Regular rate and rhythm. No rubs, murmurs or gallops. Lungs: Clear to posterior auscultation throughout Abdomen: Soft, non-distended and non-tender throughout with specifically No RUQ tenderness. Fundus at 2 below umbilicus, non-tender. Final Diagnosis (1) care and examination of lactating mother: Status: Acute (2) Gestational hypertension: Status: Acute Problem details: Serial BP were completed, normal to low mild range. Repeat HELLP labs show interval improvement in AST/ALT. Plan to continue close outpatient monitoring. Recommend she continue nifedipine 60mg QAM and 30mg QPM, with home BP monitoring BID. Strict return precautions for BP >160/110, unrelenting headache, vision changes or right upper quadrant pain. Recommend follow up in the clinic next week for RN BP check then routine 2 week visit with provider.
[2024-04-08 08:47] VITALS: BP 142/91; PULSE 94; RESP 16
[2024-04-08 08:59] LABS: Hematocrit 42.1 % (33.0-51.0); Hemoglobin* 13.8 gm/dL (12.0-16.0); Mean Corpuscular HGB Conc 33 gm/dL (32-36); Mean Corpuscular Hemoglobin 30 pg (26-34); Mean Corpuscular Volume 92 fL (80-100); Platelet Count* 251 K/uL (140-440); Red Blood Count 4.57 m/uL (4.00-5.20); White Blood Count* 7.08 K/uL (4.50-11.00)
[2024-04-08 09:00] LABS: Slide Review Reflex No
[2024-04-08 09:15] LABS: Alanine Aminotransferase* 21 U/L (4-35); Aspartate Amino Transferase* 44 U/L (12-35); Blood Urea Nitrogen* 15 mg/dL (5-24); Creatinine* 0.7 mg/dL (0.5-1.5); Estimated Glomerular Filt Rate 116 ml/min
[2024-04-08 09:16] VITALS: BP 128/85; PULSE 86
== END 2024-04-08 09:23 | disposition home or self-care (01) ==
LOC: OB CLI 08:36 → OB 08:40
PROVIDERS: Visit Provider Obstetrics & Gynecology
DX: O13.3 Gestational [pregnancy-induced] hypertension without significant proteinuria, third trimester (principal); Z3A.37 37 weeks gestation of pregnancy
CPT/HCPCS: 36415; 82565; 84450; 84460; 84520; 85027; G0463

== ENCOUNTER 2024-12-29 11:41 | Outpatient (CLI) | payer BC, SELFPAY ==
[2024-12-29 15:50] LABS: Bacterial Vaginosis* Negative (Negative); Candida glab/krus NOT DETECTED (No Detected); Candida species DETECTED (No Detected); Trichomonas vaginalis NOT DETECTED (No Detected)
[2025-01-02 18:05] LABS: HPV Source Cervix; HPV, High Risk by TMA Not Detected
== END 2024-12-29 11:42 | disposition home or self-care (01) ==
PROVIDERS: Visit Provider Registered Nurse
DX: N89.8 Other specified noninflammatory disorders of vagina (principal); Z12.4 Encounter for screening for malignant neoplasm of cervix; Z11.51 Encounter for screening for human papillomavirus (HPV)
CPT/HCPCS: 81513; 87481; 87624; 87625; 87661; 88141; 88142